=== PATIENT | male | born 1990 | race Caucasian/White ===

== ENCOUNTER 2016-06-13 12:28 | Emergency (ER) ==
[2016-06-13 12:37] VITALS: BP 153/88
[2016-06-13 15:07] LABS: URINE CULTURE PL NEEDED? NO; URINE SOURCE VOIDED
[2016-06-13 15:09] LABS: BILIRUBIN URINE NEGATIVE (NEGATIVE); BLOOD URINE NEGATIVE (NEGATIVE); GLUCOSE URINE NEGATIVE (NEGATIVE); LEUKOCYTES URINE TRACE (NEGATIVE); NITRITE URINE NEGATIVE (NEGATIVE); PROTEIN URINE TRACE mg/dL (NEGATIVE); SP GRAVITY URINE 1.015; UROBILINOGEN URINE 1+(1 mg/dL)
[2016-06-13 15:10] LABS: CLARITY CLEAR (CLEAR); COLOR YELLOW
[2016-06-13 15:20] LABS: URINE EPITHELIAL CELLS <10 /HPF (<10); URINE WBC <10 /HPF (<10)
--- NOTE | 2016-06-13 15:32 | Diag Imaging Result Document ---
PROCEDURE NAME: US SCROTUM - 06/13/2016 SCROTAL ULTRASOUND: INDICATION: Pain. Left greater than right. Norris something pop when working out yesterday. FINDINGS: The testicles appear normal in size and echotexture. The right testicle measures 4.6 x 3.4 x 2.3 cm. The left testicle measures 4.7 x 3.4 x 2.4 cm. There may be symmetrical hyperemia involving both testicles, which may indicate orchitis. There is hyperemia involving the right epididymis suggesting epididymitis. The right epididymis is mildly prominent measuring 1.1 x 1.6 x 1.4 cm. There are no intratesticular masses. Left epididymis appears normal. IMPRESSION: 4.7 cm multiseptated collection involving the right inferior hemiscrotum. This is associated with suspected right epididymitis and possible bilateral orchitis. This complex collection may represent a complex hydrocele, hematocele in the setting of trauma, or pyocele in the setting of acute infectious process. Correlate clinically. [facility]
[2016-06-13] MEDS ORDERED: XYLOCAINE-MPF 1% INJ ONE (15:35)
[2016-06-13] MEDS ORDERED: ROCEPHIN IM ONE (15:35)
[2016-06-13] MEDS ORDERED: DOXYCYCLINE PO ONE (15:36)
--- NOTE | 2016-06-13 15:42 | PROVIDER DOCUMENTATION ---
HPI-General Adult - General Chief Complaint: Testicular Pain Stated Complaint: GROIN PAIN Time Seen by Provider: 06/13/16 14:41 Source: patient Allergies/Adverse Reactions: Patient Allergies Allergy/AdvReac Type Severity Reaction Status Date / Time No Known Allergies Allergy Verified 06/13/16 12:37 - History of Present Illness -Gen Adult Nature of Presenting Problems: Pt. is 25 yom that presents with c/o testicle pain. Pt. reports yesterday he was having mild pain and today after his workout the pain became worse. Pt. reports he is sexually active with only one individual at this time. Pt. denies any injury or other complaints. Location of Pain/Injury: reports: genitalia. denies: head, face, mouth, neck, chest, upper extremity, hand(s), abdomen, back, pelvis, lower extremity, feet, upper body, lower body, generalized Pain Radiation: reports: no radiation Quality of Pain: reports: aching. denies: burning, cramping, dull, fullness, indigestion, pressure, sharp, stabbing, tearing, throbbing, tightness Severity: reports: moderate. denies: mild, severe Onset/Duration: reports: gradual, 24 hours ago Timing: reports: still present, getting worse. denies: resolved prior to arrival, intermittent, constant, changing over time Context/Activities at Onset: reports: moderate activity, recent physical stress . denies: recent emotional stress, recent trauma history, possible bad food, cold exposure, out of country travel Modifying Factors: improves with: nothing Associated Symptoms: reports: genitourinary problems. denies: anxiety, arm pain , back/neck pain, chest pain, constipation, cough, diaphoresis, diarrhea, dizziness, EENT symptoms, fatigue, fever/chills, headaches, heartburn, joint pain, loss of appetite, malaise, muscle aches, sinus congestion/drainage, nausea , rash, seizure, shortness of breath, sensory/motor loss, pain with inspiration , swelling/mass in abdomen, syncope, vomiting, weakness, trouble walking Similar Symptoms Previously?: No Recently seen or treated by another doctor?: No Review of Systems - Adult - REVIEW OF SYSTEMS - ADULT Constitutional: reports: see HPI. denies: chills, fever, fatique Eyes: reports: see HPI. denies: discharge, blurred vision, double vision Ears, Nose, Mouth & Throat: reports: see HPI. denies: ear discharge, ear pain, hearing loss, sinus problem, nose pain, loose teeth, mouth/dental pain, throat swelling Cardiovascular: reports: see HPI. denies: chest pain, irregular heart rate, orthopnea, syncope Respiratory: reports: see HPI. denies: chronic cough, cough, dyspnea on exertion, pleurisy, shortness of breath, wheezing Gastrointestinal: reports: see HPI. denies: abdominal pain, hematemesis, diarrhea, nausea, vomiting Genitourinary: reports: see HPI, other (testicular pain). denies: dysuria, discharge, frequent UTI's, hematuria, hesitency, urgency Musculoskeletal: reports: see HPI. denies: bone pain, back pain, joint pain, joint swelling, muscle aches, neck pain Integumentary: reports: see HPI. denies: hives, itching, rash, skin thickening Neurological: reports: see HPI. denies: ataxia, dizziness/vertigo, headache/ migraines, numbness, seizure, tremors Psychiatric: reports: see HPI. denies: anxiety, depression, emotional problems , insomnia, panic attacks, suicidal thoughts Past History - Adult - PAST MEDICAL HISTORY-ADULT Review of Records: reports: Old Records Reviewed, Nursing Assessment Review, Medications Reviewed, Social history reviewed & non-contributory. Physical Exam-General - PHYSICAL EXAM-ADULT Initial Vital Signs Reviewed: Yes - CONSTITUTIONAL General Appearance: alert, mild distress, thin. negative: obese, anxious, lethargic, slow to respond, obtunded, combative - EYES Eyes: PERRL/EOMI, pink conjunctivae. negative: conjuctival exudate, pale conjunctivae, scleral icterus, subconjunctival hemorrhage - HEAD, EARS, NOSE, MOUTH & THROAT HENMT: normocephalic/atraumatic, moist mucous membranes. negative: angioedema, frontal tenderness, maxillary tenderness - NECK Neck: non-tender, full range of motion, supple, normal inspection. negative: lymphadenopathy, trachial deviation, thyromegaly - RESPIRATORY Respiratory: lungs clear, normal breath sounds. negative: crackles, rales, rhonchi, stridor, wheezing - CARDIOVASCULAR Cardiovascular: normal peripheral pulses, regular rate, rhythm, no edema, no JVD , no murmur. negative: extra beats, friction rub, irregularly irregular - CHEST (BREASTS) Chest/Breast: deferred - GASTROINTESTINAL (ABDOMEN) Abdominal Exam: normal bowel sounds, non tender, soft. negative: distended, guarding, rigid, rebound, tenderness, hernia, mass - GENITOURINARY Male Genitalia: epididymal tenderness, other (Right testicle larger than left). negative: inguinal lymphadenopathy, urethral discharge, inguinal tenderness Rectal Exam: deferred Hemoccult Exam: deferred - LYMPHATIC Lymphatic: no adenopathy. negative: axilla node tender, cervical node tenderness - MUSCULOSKELETAL Back Exam: normal inspection, no CVA tenderness, no vertebral tenderness. negative: decreased range of motion, muscle spasm, vertebral tenderness Extremity: normal range of motion, non-tender, normal gait, normal inspection. negative: deformity, erythema, inflammation, swelling, tenderness Peripheral Pulses: radial (R): 2+, radial (L): 2+ - SKIN Integumentary: normal color, normal turgor, warm/dry. negative: cyanosis, diaphoresis, ecchymosis, erythema, jaundice, mottled, pallor, petechiae, purpura , rash, swelling, tenderness - NEUROLOGIC Neurologic: grossly normal, no motor/sensory deficits. negative: abnormal gait , aphasia, facial droop, focal weakness, motor weakness, sensory deficit - PSYCHIATRIC Psych/Mental Status: normal mood/affect, normal thought content, normal thought process, oriented x 3. negative: anxious, paranoid, tearful Progress - PLAN OF CARE/RESULTS Progress/Plan/Lab Results: Discussed results and plan of care with patient. Patient agrees with plan and verbalizes understanding. Vital Signs Temp Pulse Resp BP Pulse Ox 06/13/16 12:35 97.8 F 63 18 153/88 100 No Known Allergies Allergy (Verified 06/13/16 12:37) No Home Medications 06/13/16 Laboratory 06/13/16 14:45 Urine Source VOIDED Urine Color YELLOW Urine Clarity CLEAR Urine pH 7.0 Ur Specific [place] 1.015 Urine Protein TRACE A Urine Ketones TRACE Urine Blood NEGATIVE Urine Nitrite NEGATIVE Urine Bilirubin NEGATIVE Urine Urobilinogen 1+(1 mg/dL) Urine Microscopic RBC Not Reportable Urine WBC TRACE A Urine Microscopic WBC <10 Ur Epithelial Cells <10 Urine Glucose NEGATIVE Orders Category Date Time Status US SCROTUM [US] Stat Exams 06/13/16 13:[address] W/POSS RFLX CULT [URINALYSIS] Stat Lab 06/13/16 14:45 Completed CefTRIAXONE [Rocephin] Med 06/13/16 15:35 Discontinued 1 gm IM NOW ONE Doxycycline Med 06/13/16 15:36 Discontinued 100 mg PO NOW ONE Lidocaine 1% Pf [Xylocaine-Mpf 1%] Med 06/13/16 15:35 Discontinued 5 ml INJ NOW ONE Laboratory Tests 06/13/16 14:45 Urine Source VOIDED Urine Color YELLOW Urine Clarity CLEAR Urine pH 7.0 Ur Specific [place] 1.015 Urine Protein TRACE A Urine Ketones TRACE Urine Blood NEGATIVE Urine Nitrite NEGATIVE Urine Bilirubin NEGATIVE Urine Urobilinogen 1+(1 mg/dL) Urine Microscopic RBC Not Reportable Urine WBC TRACE A Urine Microscopic WBC <10 Ur Epithelial Cells <10 Urine Glucose NEGATIVE - ULTRASOUND (By Radiology) 1 US Study: Scrotum (4.7 cm multiseptated collection right hemiscrotum, no torsion , bilateral hyperemia suggestive of orchitis, right hyperemia epididymis suggesting epididymitis. Collection could represent hematocele, pyocele, complex hydrocele. ([place])) US Results: see note - CONSULTS/PCP/HOSPITALIST Notification #1 *Consult/PCP/Hospitalist*: Dr. Gillis Time Discussed: 15:58 Reason/Comments: Consult Consult Disposition: F/U in office Departure - Departure Time of Disposition Order: 15:56 DIAGNOSIS: Epididymitis Disposition: HOME 01 Certified Medical Emergency: Emergent Condition: Stable Additional Instructions: Follow up with primary care physician Follow up with urologist Take medications as directed Return to ED for any concerns or worsening of symptoms ED Follow Up Instructions: You have been treated by a care provider in the Emergency Department. These instructions are being provided to you so you can have an understanding of how to care for yourself upon discharge. Upon discharge from the Emergency Department, you are responsible for making arrangements for follow-up care by a physician of your choice. Take all prescribed medications as directed. Return to the Emergency Department immediately for any new or worsening symptoms. You may call the Physician Referral phone number at [phone] to obtain a list of Physicians who are taking new patients. Prescriptions: Doxycycline 100 mg PO BID #28 capsule Referrals: None,PCP [Primary Care Provider] - Darrin Gillis, DO [STAFF PHYSICIAN] - Attestation - Physician/ Mid-level Attestation Patient care was provided by Mid-level provider ([facility] [employer]/PA):: Yes Mid-level provider:: Funmi Montoya Mid-level documentation review:: The Mid-level provider documentation, treatment plan and medical decision making was reviewed by the physician who agrees with all treatment and medical decision making by the MLP.
[2016-06-13] MEDS ORDERED: DOXYCYCLINE ONE (16:31)
== END 2016-06-13 16:35 | disposition home or self-care (01) ==
LOC: P.ED 12:28
DX: N45.1 Epididymitis (principal); N50.811 Right testicular pain
CPT/HCPCS: 76870; 81001; 96372; J0696